=== PATIENT | female | born 1950 | race Caucasian/White ===

== ENCOUNTER 2019-05-27 07:57 | Emergency (ER) | payer MEDICARE, BC ==
[~2019-05-27] VITALS: Ht 152.4 cm; Wt 48.8 kg
[2019-05-27 08:15] VITALS: BP 148/76
--- NOTE | 2019-05-27 08:22 | PHYS DOC ---
Past History Past Medical History: No Pertinent History Smoking: Less than 1pk/day Alcohol Use: Occasionally Adult General Chief Complaint Chief Complaint: COUGH HPI HPI Patient is a 68-year-old female who presented to ER today for evaluation of cough and congestion for weeks. Patient is a smoker, she denies any fever or chill. Patient says she had been coughing and then noticed some trace of blood in her phlegm yesterday. She denies any chest pain, no trouble breathing. Patien t denies any recent travel or operation. Patient denies any history of heart problem, no history hypertension, no history of blood clot disorder. sHe denies any history of diabetes. sHe is currently not on any medication. NO recent weight loss or night sweats. NO family history of lung cancer. All other ROS is negative unless otherwise noted in HPI Review of Systems Review of Systems See above Allergies Allergies Allergies Coded Allergies Type Severity Reaction Last Updated Verified No Known Drug Allergies 05/27/19 No Physical Exam Physical Exam See above Constitutional: Well developed, well nourished, no acute distress, non-toxic appearance. [] HENT: Normocephalic, atraumatic, bilateral external ears normal, oropharynx moist, no oral exudates BUT ERYTHEMA, nose normal. [] Eyes: PERRLA, EOMI, conjunctiva normal, no discharge. [] Neck: Normal range of motion, no tenderness, supple, no stridor. [] Cardiovascular:Heart rate regular rhythm, no murmur [] Lungs & Thorax: Bilateral breath sounds WITH MILD EXPIRATORY WHEEZING to auscultation, NO RESPIRATORY DISTRESS. Abdomen: Bowel sounds normal, soft, no tenderness, no masses, no pulsatile masses. [] Skin: Warm, dry, no erythema, no rash. [] Back: No tenderness, no CVA tenderness. [] Extremities: No tenderness, no cyanosis, no clubbing, ROM intact, no edema. [] Neurologic: Alert and oriented X 3, normal motor function, normal sensory function, no focal deficits noted. [] Psychologic: Affect normal, judgement normal, mood normal. [] EKG EKG [] Radiology/Procedures Radiology/Procedures [][address] [address] IMAGING REPORT Signed PATIENT: BISMARK MORGAN LACCOUNT: [id number] : 1950 LOCATION: ER AGE: 68 SEX: F EXAM STATUS: REG ER ORD. PHYSICIAN: JEM PHAM DO REASON: cough for a week PROCEDURE: CHEST PA & LATERAL CHEST PA LATERAL History: Cough for one week.. Cardiomediastinal silhouette is not enlarged. No evidence of pneumothorax, pleural effusion or consolidating infiltrate. Bones appear grossly intact. Hyperexpansion of both lungs, most likely due to emphysema. Mildly prominent linear markings, likely fibrosis. IMPRESSION: Findings compatible with emphysema. No evidence of consolidating infiltrate. Electronically signed by: Edil Farley MD (05/27/2019 8:39 AM) [facility] DICTATED AND SIGNED BY: EDIL FARLEY MD DATE: 05/27/19838 CC: PCP,BETY; JEM PHAM DO ~ Course & Med Decision Making Course & Med Decision Making Pertinent Labs and Imaging studies reviewed. (See chart for details) Dragon Disclaimer Dragon Disclaimer This electronic medical record was generated, in whole or in part, using a voice recognition dictation system. Departure Departure: Impression: Primary Impression: Bronchitis Disposition: HOME, SELF-CARE Condition: STABLE Referrals: PCP,BETY (PCP) follow up with your doctor next week for reevaluation. Patient Instructions: Acute Bronchitis, Smoking Cessation, Tips For Success Additional Instructions: Thank you for visiting our Emergency Department. We appreciate you trusting us with your care. If any additional problems come up don't hesitate to return to visit us. Please follow up with your primary care provider so they can plan additional care if needed and know about the problem that you had. If symptoms worsen come back to the Emergency Department. Any concerning symptoms that start such as chest pain, shortness of air, weakness or numbness on one side of the body, running high fevers or any other concerning symptoms return to the ER. Scripts Albuterol Sulfate (PROAIR HFA INHALER) 8.5 Gm Hfa.aer.ad 2 PUFF IH PRN Q4-6HRS PRN for wheezing for 21 Days, #1 INHALER 0 Refills Prov: JEM PHAM DO 05/27/19 Azithromycin (ZITHROMAX) 250 Mg Tablet 1 PKG PO UD for bronchitis, #6 TAB Prov: JEM PHAM DO 05/27/19 Prednisone (PREDNISONE) 20 Mg Tablet 2 TAB PO DAILY for bronchitis for 7 Days, #14 TAB Prov: JEM PHAM DO 05/27/19 JEM PHAM DO May 27, 2019 08:22
--- NOTE | 2019-05-27 08:42 | RAD ---
CHEST PA LATERAL History: Cough for one week.. Cardiomediastinal silhouette is not enlarged. No evidence of pneumothorax, pleural effusion or consolidating infiltrate. Bones appear grossly intact. Hyperexpansion of both lungs, most likely due to emphysema. Mildly prominent linear markings, likely fibrosis. IMPRESSION: Findings compatible with emphysema. No evidence of consolidating infiltrate. Electronically signed by: Edil Farley MD (05/27/2019 8:39 AM) [facility]
[2019-05-27] MEDS ORDERED: PRED20TA PO (08:51)
[2019-05-27] MEDS ORDERED: AZIT250T PO (08:51)
[2019-05-27] MEDS ORDERED: ALBU2.5V8 IH (08:51)
== END 2019-05-27 08:57 | disposition home or self-care (01) ==
LOC: ER 07:57
DX: J40 Bronchitis, not specified as acute or chronic (principal); F17.200 Nicotine dependence, unspecified, uncomplicated
CPT/HCPCS: 71046; 99284